=== PATIENT | male | born 1965 | race Caucasian/White ===

== ENCOUNTER 2018-05-09 01:25 | Emergency (ER) | payer OTHER ==
[2018-05-09 01:53] VITALS: TEMP 98.3; BMI 28.2
[2018-05-09] MEDS ORDERED: SODIUM CHLORIDE 1,000 ML IV ONE (02:10)
[2018-05-09] MEDS ORDERED: ACETAMINOPHEN 1000 MG/100 ML VIAL (NON FORMULARY) IVPB ONE (02:13)
--- NOTE | 2018-05-09 02:13 | PDOC ---
History of Present Illness - General Chief Complaint: Headache Stated Complaint: DIABETIC, HEADACHE Time Seen by Provider: 05/09/18 01:46 History Source: Patient - History of Present Illness Initial Comments: 05/09/18 06:25 53 year old male c/o headache to the right side for 5 hours prior to arrival. reports photophobia, denies dizziness, nausea, vomiting, chest pain, neck pain, fever/ chills. pmhx: IDDm., HTN Past History - Past Medical History Allergies/Adverse Reactions: Allergies Allergy/AdvReac Type Severity Reaction Status Date / Time No Known Allergies Allergy Verified 05/09/18 06:03 Home Medications: Ambulatory Orders Aspirin [Aspirin EC] 81 mg PO DAILY 04/20/15 Enalapril Maleate [Vasotec -] 10 mg PO DAILY 04/20/15 Gabapentin [Neurontin] 300 mg PO BID 04/20/15 Glipizide 5 mg PO DAILY 04/20/15 Insulin Glargine,Hum.rec.anlog [Lantus Solostar PEN -] 100 units SQ HS 04/20/15 Metformin HCl [Metformin HCl ER] 1,000 mg PO BID 04/20/15 Simvastatin [Zocor -] 20 mg PO HS 04/20/15 Ondansetron HCl [Zofran] 4 mg PO Q8H PRN #3 tablet 04/23/15 Oxycodone HCl 10 mg PO Q3H PRN #80 tablet 04/23/15 Unobtainable 05/09/18 Anemia: No Asthma: No Cancer: No Cardiac Disorders: No CVA: No COPD: No CHF: No Dementia: No Diabetes: Yes (DX 2007) GI Disorders: No Disorders: No HTN: Yes Hypercholesterolemia: Yes Liver Disease: No Seizures: No Thyroid Disease: No - Suicide/Smoking/Psychosocial Hx Smoking History: Never smoked Have you smoked in the past 12 months: No Information on smoking cessation initiated: No Hx Alcohol Use: No Drug/Substance Use Hx: No Substance Use Type: None Hx Substance Use Treatment: No Review of Systems - Review of Systems Able to Perform ROS?: Yes Is the patient limited French proficient: No Constitutional: No: Symptoms Reported, See HPI, Chills, Diaphoresis, Fever, Loss of Appetite, Malaise, Night Sweats, Weakness, Weight Stable, Unintentional Wgt. Loss, Unexplained wgt Loss, Other Cardiac (ROS): No: Symptoms Reported, See HPI, Chest Pain, Edema, Irregular Heart Rate, Lightheadedness, Palpitations, Syncope, Chest Tightness, Other ABD/GI: No: Symptoms Reported, See HPI, Abdominal Distended, Abd. Pain w/ defecation, Blood Streaked Bowels, Constipated, Diarrhea, Difficulty Swallowing , Nausea, Poor Appetite, Poor Fluid Intake, Rectal Bleeding, Vomiting, Indigestion, Abdominal cramping, Tarry Stools, Other Neurological: Yes: Headache. No: Symptoms reported, See HPI, Numbness, Paresthesia, Pre-Existing Deficit, Seizure, Tingling, Tremors, Weakness, Unsteady Gait, Ataxia, Dizziness, Other *Physical Exam - Vital Signs Last Vital Signs Temp Pulse Resp BP Pulse Ox 98.3 F 77 18 150/102 H 99 05/09/18 01:30 05/09/18 01:30 05/09/18 01:30 05/09/18 01:30 05/09/18 01:30 - Physical Exam General Appearance: Yes: Appropriately Dressed HEENT: positive: Normal ENT Inspection Respiratory/Chest: positive: Lungs Clear, Normal Breath Sounds Gastrointestinal/Abdominal: positive: Normal Bowel Sounds, Soft Neurologic: positive: electrical systems drafter II-XII NML intact, Fully Oriented, Alert, Normal Mood/ Affect ED Treatment Course - LABORATORY CBC & Chemistry Diagram: 05/09/18 02:30 05/09/18 02:30 Progress Note - Progress Note Progress Note: A: headache; hyperglycemia P; ct head: No acute brain parenchymal abnormality. No hemorrhage, mass or acute territorial infarct. Clear visualized paranasal sinuses. Visualized mastoid air cells clear. CBC CMP Acetone VBG *DC/Admit/Observation/Transfer Diagnosis at time of Disposition: Hyperglycemia Hypertension Qualifiers: Hypertension type: essential hypertension Qualified Code(s): I10 - Essential ( primary) hypertension Headache Qualifiers: Headache type: unspecified Headache chronicity pattern: acute headache Intractability: not intractable Qualified Code(s): R51 - Headache - Discharge Dispostion Disposition: HOME Condition at time of disposition: Fair - Referrals - Patient Instructions Printed Discharge Instructions: Tension Headache Additional Instructions: drink plenty of fluids take your blood pressure and your diabetic medications as prescribed follow up with your doctor as soon as possible. return to the ER if symptoms worsen. - Post Discharge Activity Forms/Work/School Notes: Back to Work
[2018-05-09 02:46] LABS: VENOUS PC02 41.5 mmHg (38-52); VENOUS PH 7.36 (7.32-7.42); VENOUS PO2 70.2 mmHg (28-48)
[2018-05-09 02:49] LABS: BASO % 0.9 % (0-2.0); EOS % 1.9 % (0-4.5); HEMATOCRIT 38.7 % (35.4-49); HEMOGLOBIN 13.1 GM/dL (11.7-16.9); LYMPH % 24.8 % (8-40); MCH 29.5 pg (25.7-33.7); MCHC 33.8 g/dl (32.0-35.9); MEAN CELL VOLUME 87.3 fl (80-96); MONO % 8.2 % (3.8-10.2); NEUT % 64.2 % (42.8-82.8); PLATELET COUNT 226 K/MM3 (134-434); RBC 4.43 M/mm3 (4.00-5.60); RDW 12.7 % (11.9-15.9)
[2018-05-09 02:55] LABS: INR 1.01 (0.83-1.09); PROTHROMBIN TIME (PATIENT) 11.9 SEC (9.7-13.0)
[2018-05-09 03:09] LABS: ALBUMIN 3.6 g/dl (3.4-5.0); ALK PHOS 109 U/L (45-117); ANION GAP 7 MMOL/L (8-16); BILIRUBIN,TOTAL 0.4 mg/dL (0.2-1); BLOOD UREA NITROGEN 17 mg/dL (7-18); CALCIUM 7.8 mg/dL (8.5-10.1); CHLORIDE 107 mmol/L (98-107); CO2 24 mmol/L (21-32); CREATININE 0.9 mg/dL (0.55-1.3); GLUCOSE,RANDOM 293 mg/dL (74-106); POTASSIUM 3.9 mmol/L (3.5-5.1); SGOT/AST 16 U/L (15-37); SGPT/ALT 23 U/L (13-61); SODIUM 138 mmol/L (136-145); TOT PROT 6.5 g/dl (6.4-8.2)
[2018-05-09] MEDS ORDERED: ACETAMINOPHEN INJECTION 100 ML IVPB ONE (03:17)
[2018-05-09 06:05] VITALS: BP 142/82; PULSE 80
[2018-05-09] MEDS ORDERED: INSULIN REGULAR HUMAN 100 UNITS/ML *VIAL IVPUSH ONE (06:28)
[2018-05-09] MEDS ORDERED: INSULIN REGULAR HUMAN 100 UNITS/ML *VIAL ONE (06:56)
--- NOTE | 2018-05-09 21:54 | EKG ---
Test Reason : Blood Pressure : / mmHG Vent. Rate : 074 BPM Atrial Rate : 074 BPM P-R Int : 158 ms QRS Dur : 096 ms QT Int : 420 ms P-R-T Axes : 062 -62 016 degrees QTc Int : 466 ms POOR DATA QUALITY, INTERPRETATION MAY BE ADVERSELY AFFECTED NORMAL SINUS RHYTHM LEFT AXIS DEVIATION ABNORMAL ECG NO PREVIOUS ECGS AVAILABLE Confirmed by APARNA BORGES MD ([id number]) on 05/09/2018 9:54:05 PM Referred By: Confirmed By:APARNA BORGES MD
== END 2018-05-09 07:16 | disposition home or self-care (01) ==
LOC: JER 01:25
PROC: 3E033VG Introduction of Insulin into Peripheral Vein, Percutaneous Approach (ICD-10-PCS; principal; 2018-05-09)
PROC: 3E033NZ Introduction of Analgesics, Hypnotics, Sedatives into Peripheral Vein, Percutaneous Approach (ICD-10-PCS; 2018-05-09)
DX: E11.65 Type 2 diabetes mellitus with hyperglycemia (principal); Z79.4 Long term (current) use of insulin; Z79.84 Long term (current) use of oral hypoglycemic drugs; R51 Headache; I10 Essential (primary) hypertension; E78.00 Pure hypercholesterolemia, unspecified
CPT/HCPCS: 36415; 70450-TC; 80053; 82009; 82550; 82553; 82803; 82962; 84484; 85025; 85610; 86850; 86900; 86901; 93005; 93010; 99283-25; J0131

== ENCOUNTER 2019-02-07 19:29 | Emergency (ER) | payer OTHER ==
[2019-02-07] MEDS ORDERED: SODIUM CHLORIDE 1,000 ML IV STA (19:40)
--- NOTE | 2019-02-07 19:42 | PDOC ---
Rapid Medical Evaluation Time Seen by Provider: 02/07/19 19:34 Medical Evaluation: Allergies Allergy/AdvReac Type Severity Reaction Status Date / Time No Known Allergies Allergy Verified 05/09/18 06:03 02/07/19 19:39 HPI: hyperglycemia at home 414 BS, headache PE: No distress ORDERS: labs, fluids 02/07/19 19:42 Discharge Disposition - Diagnosis Hyperglycemia - Referrals - Patient Instructions - Post Discharge Activity
[2019-02-07 20:00] VITALS: BMI 27.4
--- NOTE | 2019-02-07 20:11 | PDOC ---
History of Present Illness - General Chief Complaint: Blood Sugar Problem Stated Complaint: HIGH BLOOD SUGUR Time Seen by Provider: 02/07/19 19:34 Past History - Past Medical History Allergies/Adverse Reactions: Allergies Allergy/AdvReac Type Severity Reaction Status Date / Time No Known Allergies Allergy Verified 02/07/19 19:46 Home Medications: Ambulatory Orders Aspirin [Aspirin EC] 81 mg PO DAILY 04/20/15 Enalapril Maleate [Vasotec -] 10 mg PO DAILY 04/20/15 Gabapentin [Neurontin] 300 mg PO BID 04/20/15 Glipizide 5 mg PO DAILY 04/20/15 Insulin Glargine,Hum.rec.anlog [Lantus Solostar PEN -] 100 units SQ HS 04/20/15 Simvastatin [Zocor -] 20 mg PO HS 04/20/15 metFORMIN HCL [Metformin ER Osmotic] 1,000 mg PO BID 04/20/15 Ondansetron HCl [Zofran] 4 mg PO Q8H PRN #3 tablet 04/23/15 Oxycodone HCl 10 mg PO Q3H PRN #80 tablet 04/23/15 Unobtainable 05/09/18 Anemia: No Asthma: No Cancer: No Cardiac Disorders: No CVA: No COPD: No CHF: No Dementia: No Diabetes: Yes (DX 2007) GI Disorders: No Disorders: No HTN: Yes Hypercholesterolemia: Yes Liver Disease: No Seizures: No Thyroid Disease: No - Suicide/Smoking/Psychosocial Hx Smoking History: Never smoked Have you smoked in the past 12 months: No Information on smoking cessation initiated: No Hx Alcohol Use: No Drug/Substance Use Hx: No Substance Use Type: None Hx Substance Use Treatment: No *Physical Exam - Vital Signs Last Vital Signs Temp Pulse Resp BP Pulse Ox 98.3 F 91 H 16 143/90 97 02/07/19 19:30 02/07/19 19:30 02/07/19 19:30 02/07/19 19:30 02/07/19 19:30 ED Treatment Course - LABORATORY CBC & Chemistry Diagram: 02/07/19 21:00 02/07/19 21:00 Medical Decision Making - Medical Decision Making 02/07/19 23:50 53 y/o M with hx of diabetes who self-discontinued his insulin p/w hyperglycemia to 414 noted when he measured his blood sugar at home, consistent with non-ketotic hyperglycemia. Plan to evaluate urine for ketones, CMP for potassium level and electrolytes, and troponin with repeat in 3 hours. Plan to discharge home if second troponin negative and without ketones. *DC/Admit/Observation/Transfer Diagnosis at time of Disposition: Hyperglycemia - Discharge Dispostion Disposition: HOME Condition at time of disposition: Stable Decision to Admit order: No - Referrals Referrals: Syed Breaux MD [Primary Care Provider] - - Patient Instructions Additional Instructions: Usted fue evaluado en la mehul de urgencias por el Dr. Kruse y Dr. Cornejo. Nosotros evaluamos kerwin sintomas, tomamos mary ann historia medica, y le evaluamos con un examen fisico. Tambien hicimos examenes de paul y orine para evaluar a youngblood nivel de azucar y youngblood edna. Youngblood nivel de azucar estaba alto, por lo cual observamos a kerwin niveles de azucar y repetimos examenes de youngblood edna. Despues de seis horas youngblood nivel de troponin, que medimos para evaluar a youngblood edna, estuvo normal, y youngblood nivel de azucar estaba en un nivel seguro. Por lo cual, le descargamos del hospital. Por favor ve a youngblood doctor de cabezera la semana que viene, y tambien ve a youngblood endocrinologo (el doctor de la diabetes) lo mas pronto que puede. Por favor regrese al hospital si usted empieza a tener confusion, debilidad, dolor de pecho, dolor de estomago, o si tienes otras sintomas lo cual le preocupa. - Post Discharge Activity
[2019-02-07 21:09] LABS: BASO % 0.7 % (0-2.0); EOS % 1.2 % (0-4.5); HEMATOCRIT 43.4 % (35.4-49); HEMOGLOBIN 14.5 GM/dL (11.7-16.9); LYMPH % 37.8 % (8-40); MCHC 33.4 g/dl (32.0-35.9); MEAN CELL VOLUME 86.8 fl (80-96); MEAN PLT VOLUME 10.7 fl (7.5-11.1); MONO % 8.8 % (3.8-10.2); NEUT % 51.5 % (42.8-82.8); PLATELET COUNT 247 K/MM3 (134-434); RDW 12.7 % (11.9-15.9); WHITE BLOOD COUNT 6.5 K/mm3 (4.0-10.0)
[2019-02-07 21:14] LABS: URINE APPEARANCE CLEAR; URINE BILIRUBIN NEGATIVE (NEGATIVE); URINE COLOR YELLOW; URINE GLUCOSE (UA) 3+ (NEGATIVE); URINE KETONE NEGATIVE (NEGATIVE); URINE LEUK ESTERASE NEGATIVE (NEGATIVE); URINE NITRITE NEGATIVE (NEGATIVE); URINE PROTEIN NEGATIVE (NEGATIVE); URINE UROBILINOGEN 0.2 mg/dL (0.2-1.0)
[2019-02-07 21:39] LABS: ALBUMIN 3.8 g/dl (3.4-5.0); ANION GAP 8 MMOL/L (8-16); BILIRUBIN,TOTAL 0.3 mg/dL (0.2-1); BLOOD UREA NITROGEN 14.8 mg/dL (7-18); CALCIUM 9.2 mg/dL (8.5-10.1); CHLORIDE 107 mmol/L (98-107); CO2 23 mmol/L (21-32); CREATININE 0.9 mg/dL (0.55-1.3); POTASSIUM 4.1 mmol/L (3.5-5.1); SGOT/AST 13 U/L (15-37); SGPT/ALT 26 U/L (13-61); SODIUM 138 mmol/L (136-145); TOT PROT 7.2 g/dl (6.4-8.2)
[2019-02-07 21:40] LABS: ALK PHOS 143 U/L (45-117)
[2019-02-07 21:41] LABS: INR 0.97 (0.83-1.09); PROTHROMBIN TIME (PATIENT) 11.4 SEC (9.7-13.0)
[2019-02-07 21:42] LABS: GLUCOSE,RANDOM 311 mg/dL (74-106)
--- NOTE | 2019-02-07 21:46 | PDOC ---
Documentation entered by Ami Price SCRIBE, acting as scribe for Yovany Cornejo MD. Yovany Cornejo MD: This documentation has been prepared by the Dee ramírez Sammi, SCRIBE, under my direction and personally reviewed by me in its entirety. I confirm that the documentation accurately reflects all work, treatment, procedures, and medical decision making performed by me. Attending Attestation - Resident Resident Name: UriahMarcel - ED Attending Attestation I have performed the following: I have examined & evaluated the patient, The case was reviewed & discussed with the resident, I agree w/resident's findings & plan, Exceptions are as noted - HPI HPI: 02/07/19 21:37 The patient is a 53 year old male, with a significant PMH of IDDM, who presents to the emergency department for evaluation of general malaise, headache, chills. The patient notes he took his blood sugar at home which read 414. He reports increased thirst and urination. Daughter at bedsides states she has noticed the patient has lost weight. The patient denies chest pain, shortness of breath. Denies nausea, vomiting, diarrhea and constipation. Allergies: NKA PCP: Ailin - Physicial Exam PE: 02/07/19 21:37 GENERAL: Awake, alert, and fully oriented, in no acute distress EYES: PERRLA, EOMI, sclera anicteric, conjunctiva clear ENT: (+)Dry mucous mebranes. Auricles normal inspection, hearing grossly normal , nares patent, oropharynx clear without exudates. NECK: Normal ROM, supple, no lymphadenopathy, JVD, or masses LUNGS: Breath sounds equal, clear to auscultation bilaterally. No wheezes, and no crackles HEART: Regular rate and rhythm, normal S1 and S2, no murmurs, rubs or gallops ABDOMEN: Soft, nontender, normoactive bowel sounds. No guarding, no rebound. No masses EXTREMITIES: Normal range of motion, no edema. No clubbing or cyanosis. No cords, erythema, or tenderness NEUROLOGICAL: Cranial nerves II through XII grossly intact. Normal speech. SKIN: Warm, Dry, normal turgor, no rashes or lesions noted. - Medical Decision Making 02/07/19 21:42 A portion of this note was documented by scribe services under my direction. I have reviewed the details of the note, within reason, and agree with the documentation with the following case summary and management plan written by me. Patient treated in the ED. Nursing notes are reviewed and incorporated into the medical decision-making. Vital signs reviewed. Peripheral IV access obtained by the nurse, laboratory studies are drawn and sent, reviewed and interpreted by myself. Vital Signs Temp Pulse Resp BP Pulse Ox 98.3 F 91 H 16 143/90 97 02/07/19 19:30 02/07/19 19:30 02/07/19 19:30 02/07/19 19:30 02/07/19 19:30 53-year-old male with history of hypertension diabetes presents with hyperglycemia. Patient reports that he is typically adherent to his medications which includes metformin been 1000 mg twice a day. The patient states that his sugars are typically mid 200s. She was before on insulin reported numerous side effects so does not take it anymore. He noted that he is feeling polyuria polydipsia and checked his glucose twice including yesterday with sugars around 400s. He denies any recent illnesses, fevers, chills, cough, vomiting, diarrhea. The patient reports some bilateral shoulder discomforts which has not always came with hyperglycemia. Denies estefania chest pain or shortness of breath. Denies chest pain on exertion. Denies prior cardiac history. Because of his persistence of symptoms and is hyperglycemic, patient came to the ER for an evaluation. The patient likely has hyperglycemia secondary to his diabetes. However, we'll need to investigate and rule out other etiology such as diabetic ketoacidosis. Patient's weakness is likely secondary to dehydration secondary to polyuria and polydipsia. However, we'll need to vascular metabolic disarray such as sodium abnormalities. We'll send acetone levels. Though less likely, we'll send troponin and EKG to rule out cardiac etiology. Given that the patient is diabetic, we should check this. We'll give IV hydration and reassess. 02/08/19 00:13 CBC, BMP 02/07/19 21:00 CMP Sodium 138 mmol/L (136-145) 02/07/19 21:00 Potassium 4.1 mmol/L (3.5-5.1) 02/07/19 21:00 Chloride 107 mmol/L (98-107) 02/07/19 21:00 Carbon Dioxide 23 mmol/L (21-32) 02/07/19 21:00 Anion Gap 8 MMOL/L (8-16) 02/07/19 21:00 BUN 14.8 mg/dL (7-18) 02/07/19 21:00 Creatinine 0.9 mg/dL (0.55-1.3) 02/07/19 21:00 Est GFR (CKD-EPI)AfAm 114.21 02/07/19 21:00 Est GFR (CKD-EPI)NonAf 98.54 02/07/19 21:00 POC Glucometer 338 UNITS (80-120) 02/07/19 20:46 Random Glucose 311 mg/dL (74-106) H* 02/07/19 21:00 Calcium 9.2 mg/dL (8.5-10.1) 02/07/19 21:00 Total Bilirubin 0.3 mg/dL (0.2-1) 02/07/19 21:00 AST 13 U/L (15-37) L 02/07/19 21:00 ALT 26 U/L (13-61) 02/07/19 21:00 Alkaline Phosphatase 143 U/L (45-117) H 02/07/19 21:00 Creatine Kinase 307 U/L (26-308) 02/07/19 21:00 Creatine Kinase Index 0.8 % (0.0-5.0) 02/07/19 21:00 CK-MB (CK-2) 2.5 ng/mL (0.5-3.6) 02/07/19 21:00 Troponin I < 0.02 ng/ml (0.00-0.05) 02/07/19 21:00 Total Protein 7.2 g/dl (6.4-8.2) 02/07/19 21:00 Albumin 3.8 g/dl (3.4-5.0) 02/07/19 21:00 Urine Test Results Urine Color Yellow 02/07/19 21:05 Urine Appearance Clear 02/07/19 21:05 Urine pH 5.0 (5.0-8.0) 02/07/19 21:05 Ur Specific [place] 1.039 (1.010-1.035) H 02/07/19 21:05 Urine Protein Negative (NEGATIVE) 02/07/19 21:05 Urine Glucose (UA) 3+ (NEGATIVE) H 02/07/19 21:05 Urine Ketones Negative (NEGATIVE) 02/07/19 21:05 Urine Blood Negative (NEGATIVE) 02/07/19 21:05 Urine Nitrite Negative (NEGATIVE) 02/07/19 21:05 Urine Bilirubin Negative (NEGATIVE) 02/07/19 21:05 Ur Leukocyte Esterase Negative (NEGATIVE) 02/07/19 21:05 Blood work demonstrate no acute findings. The patient's glucose initially 311. Patient was given IV fluids and we'll repeat the blood work. We'll also repeat a second troponin. If the workup is negative, we'll encourage patient to drink plenty of fluids and to continue his metformin. We will have him follow-up with his primary care physician regards to diabetes management. His likely discharge diagnosis would be hyperglycemia secondary to diabetes. Heart Score/ECG Review #1 ECG reviewed & interpreted by me at: 05:00 02/08/19 00:13 NSR 79, left axis deviation, no std/fady, normal axis, normal intervals, QTC 458 msec
--- NOTE | 2019-02-07 23:50 | PDOC ---
*Physical Exam - Vital Signs Last Vital Signs Temp Pulse Resp BP Pulse Ox 98.3 F 91 H 16 143/90 97 02/07/19 19:30 02/07/19 19:30 02/07/19 19:30 02/07/19 19:30 02/07/19 19:30 ED Treatment Course - LABORATORY CBC & Chemistry Diagram: 02/07/19 21:00 02/07/19 23:50 - ADDITIONAL ORDERS Additional order review: Laboratory Results 02/07/19 02/07/19 02/07/19 21:05 21:00 21:00 PT with INR INR Sodium 138 Potassium 4.1 Chloride 107 Carbon Dioxide 23 Anion Gap 8 BUN 14.8 Creatinine 0.9 Est GFR (CKD-EPI)AfAm 114.21 Est GFR (CKD-EPI)NonAf 98.54 POC Glucometer Random Glucose 311 H* Calcium 9.2 Total Bilirubin 0.3 AST 13 L ALT 26 Alkaline Phosphatase 143 H Creatine Kinase Cancelled 307 Creatine Kinase Index 0.8 CK-MB (CK-2) 2.5 Troponin I Cancelled < 0.02 Total Protein 7.2 Albumin 3.8 Urine Color Yellow Urine Appearance Clear Urine pH 5.0 Ur Specific [place] 1.039 H Urine Protein Negative Urine Glucose (UA) 3+ H Urine Ketones Negative Urine Blood Negative Urine Nitrite Negative Urine Bilirubin Negative Urine Urobilinogen 0.2 Ur Leukocyte Esterase Negative 02/07/19 02/07/19 21:00 20:46 PT with INR 11.40 INR 0.97 Sodium Potassium Chloride Carbon Dioxide Anion Gap BUN Creatinine Est GFR (CKD-EPI)AfAm Est GFR (CKD-EPI)NonAf POC Glucometer 338 Random Glucose Calcium Total Bilirubin AST ALT Alkaline Phosphatase Creatine Kinase Creatine Kinase Index CK-MB (CK-2) Troponin I Total Protein Albumin Urine Color Urine Appearance Urine pH Ur Specific [place] Urine Protein Urine Glucose (UA) Urine Ketones Urine Blood Urine Nitrite Urine Bilirubin Urine Urobilinogen Ur Leukocyte Esterase 02/07/19 02/07/19 21:00 20:46 RBC 5.00 MCV 86.8 MCHC 33.4 RDW 12.7 MPV 10.7 Neutrophils % 51.5 Lymphocytes % 37.8 D Monocytes % 8.8 Eosinophils % 1.2 Basophils % 0.7 POC Glucometer 338 - Medications Given in the ED: ED Medications Discontinued Medications Generic Name Dose Route Start Last Admin Trade Name Freq PRN Reason Stop Dose Admin Sodium Chloride 1,000 mls @ 1,000 mls/hr 02/07/19 19:40 02/07/19 21:10 Normal Saline - IV 02/07/19 20:39 1,000 mls/hr .Q1H STA Administration Medical Decision Making - Medical Decision Making 02/07/19 23:[address] Kruse. Patient is a 53 yo male w/ pmh of DM who presents for evaluation of hyperglycemia and non-specific malaise. Patient evaluated with cardiac labs as well as diabetic workup w/ no concerning findings as below. Patient BGM improved w/ fluids. No concern for acute process at this time. Patient will f/u w/ printed circuit board pcb designer outpatient for further evaluation. Discharging to home. 02/08/19 00:37 Laboratory Results - last 24 hr 02/07/19 02/07/19 02/07/19 20:46 21:00 21:00 WBC 6.5 RBC 5.00 Hgb 14.5 Hct 43.4 MCV 86.8 MCH 29.0 MCHC 33.4 RDW 12.7 Plt Count 247 MPV 10.7 Absolute Neuts (auto) 3.3 Neutrophils % 51.5 Lymphocytes % 37.8 D Monocytes % 8.8 Eosinophils % 1.2 Basophils % 0.7 Nucleated RBC % 0 PT with INR 11.40 INR 0.97 Sodium Potassium Chloride Carbon Dioxide Anion Gap BUN Creatinine Est GFR (CKD-EPI)AfAm Est GFR (CKD-EPI)NonAf POC Glucometer 338 Random Glucose Calcium Total Bilirubin AST ALT Alkaline Phosphatase Creatine Kinase Creatine Kinase Index CK-MB (CK-2) Troponin I Total Protein Albumin Urine Color Urine Appearance Urine pH Ur Specific [place] Urine Protein Urine Glucose (UA) Urine Ketones Urine Blood Urine Nitrite Urine Bilirubin Urine Urobilinogen Ur Leukocyte Esterase 02/07/19 02/07/19 02/07/19 21:00 21:00 21:05 WBC RBC Hgb Hct MCV MCH MCHC RDW Plt Count MPV Absolute Neuts (auto) Neutrophils % Lymphocytes % Monocytes % Eosinophils % Basophils % Nucleated RBC % PT with INR INR Sodium 138 Potassium 4.1 Chloride 107 Carbon Dioxide 23 Anion Gap 8 BUN 14.8 Creatinine 0.9 Est GFR (CKD-EPI)AfAm 114.21 Est GFR (CKD-EPI)NonAf 98.54 POC Glucometer Random Glucose 311 H* Calcium 9.2 Total Bilirubin 0.3 AST 13 L ALT 26 Alkaline Phosphatase 143 H Creatine Kinase 307 Cancelled Creatine Kinase Index 0.8 CK-MB (CK-2) 2.5 Troponin I < 0.02 Cancelled Total Protein 7.2 Albumin 3.8 Urine Color Yellow Urine Appearance Clear Urine pH 5.0 Ur Specific [place] 1.039 H Urine Protein Negative Urine Glucose (UA) 3+ H Urine Ketones Negative Urine Blood Negative Urine Nitrite Negative Urine Bilirubin Negative Urine Urobilinogen 0.2 Ur Leukocyte Esterase Negative 02/07/19 23:50 WBC RBC Hgb Hct MCV MCH MCHC RDW Plt Count MPV Absolute Neuts (auto) Neutrophils % Lymphocytes % Monocytes % Eosinophils % Basophils % Nucleated RBC % PT with INR INR Sodium 141 Potassium 4.2 Chloride 109 H Carbon Dioxide 25 Anion Gap 6 L BUN 13.2 Creatinine 0.8 Est GFR (CKD-EPI)AfAm 119.88 Est GFR (CKD-EPI)NonAf 103.43 POC Glucometer Random Glucose 246 H Calcium 8.6 Total Bilirubin 0.4 AST 10 L ALT 24 Alkaline Phosphatase 122 H Creatine Kinase Creatine Kinase Index CK-MB (CK-2) Troponin I < 0.02 Total Protein 6.5 Albumin 3.5 Urine Color Urine Appearance Urine pH Ur Specific [place] Urine Protein Urine Glucose (UA) Urine Ketones Urine Blood Urine Nitrite Urine Bilirubin Urine Urobilinogen Ur Leukocyte Esterase *DC/Admit/Observation/Transfer Diagnosis at time of Disposition: Hyperglycemia - Discharge Dispostion Disposition: HOME Condition at time of disposition: Stable - Referrals Referrals: Syed Breaux MD [Primary Care Provider] - - Patient Instructions Printed Discharge Instructions: DI for Hyperglycemia -- Adult Additional Instructions: Usted fue evaluado en la mehul de urgencias por el Dr. Kruse y Dr. Cornejo. Nosotros evaluamos kerwin sintomas, tomamos mary ann historia medica, y le evaluamos con un examen fisico. Tambien hicimos examenes de paul y orine para evaluar a youngblood nivel de azucar y youngblood edna. Youngblood nivel de azucar estaba alto, por lo cual observamos a kerwin niveles de azucar y repetimos examenes de youngblood edna. Despues de seis horas youngblood nivel de troponin, que medimos para evaluar a youngblood edna, estuvo normal, y youngblood nivel de azucar estaba en un nivel seguro. Por lo cual, le descargamos del hospital. Por favor ve a youngblood doctor de cabezera la semana que viene, y tambien ve a youngblood endocrinologo (el doctor de la diabetes) lo mas pronto que puede. Por favor regrese al hospital si usted empieza a tener confusion, debilidad, dolor de pecho, dolor de estomago, o si tienes otras sintomas lo cual le preocupa. Print Language: UKRAINIAN - Post Discharge Activity
[2019-02-08 00:30] LABS: ALBUMIN 3.5 g/dl (3.4-5.0); ALK PHOS 122 U/L (45-117); ANION GAP 6 MMOL/L (8-16); BILIRUBIN,TOTAL 0.4 mg/dL (0.2-1); BLOOD UREA NITROGEN 13.2 mg/dL (7-18); CALCIUM 8.6 mg/dL (8.5-10.1); CHLORIDE 109 mmol/L (98-107); CO2 25 mmol/L (21-32); CREATININE 0.8 mg/dL (0.55-1.3); GLUCOSE,RANDOM 246 mg/dL (74-106); POTASSIUM 4.2 mmol/L (3.5-5.1); SGOT/AST 10 U/L (15-37); SGPT/ALT 24 U/L (13-61); SODIUM 141 mmol/L (136-145); TOT PROT 6.5 g/dl (6.4-8.2)
[2019-02-08 00:48] VITALS: BP 141/82; PULSE 72; TEMP 98.1
--- NOTE | 2019-02-09 13:30 | EKG ---
Test Reason : Blood Pressure : / mmHG Vent. Rate : 079 BPM Atrial Rate : 079 BPM P-R Int : 154 ms QRS Dur : 098 ms QT Int : 400 ms P-R-T Axes : 074 -63 019 degrees QTc Int : 458 ms NORMAL SINUS RHYTHM LEFT AXIS DEVIATION ABNORMAL ECG WHEN COMPARED WITH ECG OF 09-MAY-2018 02:41, NO SIGNIFICANT CHANGE WAS FOUND Confirmed by MD DARIUS, LIDYA ([id number]) on 02/09/2019 1:30:18 PM Referred By: Confirmed By:LIDYA MCCOY MD
== END 2019-02-08 00:48 | disposition home or self-care (01) ==
LOC: JER 19:29
PROC: 3E0337Z Introduction of Electrolytic and Water Balance Substance into Peripheral Vein, Percutaneous Approach (ICD-10-PCS; principal; 2019-02-07)
DX: E11.65 Type 2 diabetes mellitus with hyperglycemia (principal); Z79.4 Long term (current) use of insulin; I10 Essential (primary) hypertension; E78.00 Pure hypercholesterolemia, unspecified
CPT/HCPCS: 36415; 80048; 80053; 81003; 82550; 82553; 82962; 84484; 85025; 85610; 87086; 93005; 93010; 96360; 99282-25; J7030

== ENCOUNTER 2020-08-31 20:02 | Emergency (ER) | payer OTHER ==
[2020-08-31 20:07] VITALS: BP 131/80; PULSE 114; TEMP 98.4; BMI 28.0
[2020-08-31] MEDS ORDERED: METOCLOPRAMIDE HCL INJECTION 10 MG/2 ML VIAL IVPB STA (20:43)
[2020-08-31] MEDS ORDERED: SODIUM CHLORIDE 1,000 ML IV STA (20:45)
[2020-08-31 23:16] LABS: BASO % 0.7 % (0-2.0); EOS % 1.8 % (0-4.5); HEMATOCRIT 42.7 % (35.4-49); HEMOGLOBIN 14.3 GM/dL (11.7-16.9); LYMPH % 26.7 % (8-40); MCH 29.1 pg (25.7-33.7); MCHC 33.5 g/dl (32.0-35.9); MEAN CELL VOLUME 86.9 fl (80-96); MEAN PLT VOLUME 10.8 fl (7.5-11.1); MONO % 9.3 % (3.8-10.2); NEUT % 61.5 % (42.8-82.8); PLATELET COUNT 317 K/MM3 (134-434); RBC 4.91 M/mm3 (4.00-5.60); RDW 12.8 % (11.9-15.9); WHITE BLOOD COUNT 7.9 K/mm3 (4.0-10.0)
[2020-08-31 23:45] LABS: CHLORIDE 102 mmol/L (98-107); POTASSIUM 4.3 mmol/L (3.5-5.1); SODIUM 137 mmol/L (136-145)
[2020-08-31 23:47] LABS: ALBUMIN 3.9 g/dl (3.4-5.0); ANION GAP 9 MMOL/L (8-16); BLOOD UREA NITROGEN 15.9 mg/dL (7-18); CALCIUM 9.1 mg/dL (8.5-10.1); CO2 26 mmol/L (21-32)
[2020-08-31 23:50] LABS: CREATININE 1.2 mg/dL (0.55-1.3); SGOT/AST 14 U/L (15-37); SGPT/ALT 20 U/L (13-61)
[2020-08-31 23:52] LABS: BILIRUBIN,TOTAL 0.3 mg/dL (0.2-1); TOT PROT 7.4 g/dl (6.4-8.2)
[2020-08-31 23:52] LABS: URINE APPEARANCE CLEAR; URINE BILIRUBIN NEGATIVE (NEGATIVE); URINE COLOR YELLOW; URINE GLUCOSE (UA) 3+ (NEGATIVE); URINE KETONE NEGATIVE (NEGATIVE); URINE LEUK ESTERASE NEGATIVE (NEGATIVE); URINE NITRITE NEGATIVE (NEGATIVE); URINE PROTEIN NEGATIVE (NEGATIVE); URINE UROBILINOGEN 0.2 mg/dL (0.2-1.0)
[2020-08-31 23:53] LABS: ALK PHOS 139 U/L (45-117)
[2020-09-01] MEDS ORDERED: INSULIN REGULAR HUMAN 100 UNITS/ML *VIAL IVPUSH ONE
[2020-09-01 00:33] LABS: GLUCOSE,RANDOM 432 mg/dL (74-106)
== END 2020-09-01 01:55 | disposition home or self-care (01) ==
LOC: JER 20:02
PROC: 3E013VG Introduction of Insulin into Subcutaneous Tissue, Percutaneous Approach (ICD-10-PCS; principal; 2020-08-31)
PROC: 3E0337Z Introduction of Electrolytic and Water Balance Substance into Peripheral Vein, Percutaneous Approach (ICD-10-PCS; 2020-08-31)
DX: R73.9 Hyperglycemia, unspecified (principal)
CPT/HCPCS: 36415; 80053; 81003; 82010; 82550; 82962; 84484; 85025; 99284-25

== ENCOUNTER 2020-12-29 14:49 | Emergency (ER) | payer OTHER ==
[2020-12-29 15:17] VITALS: TEMP 98.3; BMI 24.2
[2020-12-29] MEDS ORDERED: LACTATED RINGERS SOLUTION 1000 ML INFUS.BAG IV ONE (16:34)
[2020-12-29 17:39] LABS: BASO % 0.9 % (0-2.0); EOS % 1.6 % (0-4.5); HEMATOCRIT 41.6 % (35.4-49); HEMOGLOBIN 13.9 GM/dL (11.7-16.9); LYMPH % 36.9 % (8-40); MCH 29.7 pg (25.7-33.7); MCHC 33.3 g/dl (32.0-35.9); MEAN PLT VOLUME 10.2 fl (7.5-11.1); MONO % 7.7 % (3.8-10.2); NEUT % 52.9 % (42.8-82.8); PLATELET COUNT 295 K/MM3 (134-434); RBC 4.67 M/mm3 (4.00-5.60); RDW 13.6 % (11.9-15.9); WHITE BLOOD COUNT 6.2 K/mm3 (4.0-10.0)
[2020-12-29 17:45] LABS: INR 0.97 (0.83-1.09); PROTHROMBIN TIME (PATIENT) 11.9 SEC (9.7-13.0)
[2020-12-29 17:48] LABS: ACTIVATED PTT 29.2 SECONDS (25.2-36.5)
[2020-12-29 18:05] LABS: CHLORIDE 104 mmol/L (98-107); SODIUM 139 mmol/L (136-145)
[2020-12-29 18:09] LABS: CALCIUM 9.3 mg/dL (8.5-10.1)
[2020-12-29 18:10] LABS: ANION GAP 7 MMOL/L (8-16); CO2 28 mmol/L (21-32); GLUCOSE,RANDOM 101 mg/dL (74-106)
[2020-12-29 18:13] LABS: CHOLESTEROL 203 mg/dL (50-200); CREATININE 0.9 mg/dL (0.55-1.3); SGOT/AST 26 U/L (15-37); SGPT/ALT 38 U/L (13-61); TRIGLYCERIDES 116 mg/dL (0-150)
[2020-12-29 18:14] LABS: BILIRUBIN,TOTAL 0.3 mg/dL (0.2-1); LDL CHOLESTEROL (ONLY SJRH) 103 mg/dL (5-100); TOT PROT 7.3 g/dl (6.4-8.2)
[2020-12-29 18:15] LABS: ALK PHOS 99 U/L (45-117)
[2020-12-29 18:16] LABS: HDL CHOLESTEROL 69 mg/dL (40-60)
[2020-12-29 19:17] LABS: PH,URINE 5.5 (5.0-8.0); URINE APPEARANCE CLEAR; URINE BILIRUBIN NEGATIVE (NEGATIVE); URINE COLOR YELLOW; URINE GLUCOSE (UA) 3+ (NEGATIVE); URINE KETONE NEGATIVE (NEGATIVE); URINE LEUK ESTERASE NEGATIVE (NEGATIVE); URINE NITRITE NEGATIVE (NEGATIVE); URINE PROTEIN NEGATIVE (NEGATIVE); URINE UROBILINOGEN 0.2 mg/dL (0.2-1.0)
[2020-12-29 19:48] VITALS: BP 112/67; PULSE 73
== END 2020-12-29 19:48 | disposition home or self-care (01) ==
LOC: JER 14:49
DX: R42 Dizziness and giddiness (principal); E86.0 Dehydration
CPT/HCPCS: 36415; 70450-TC; 80053; 80061; 81003; 82550; 82553; 83721; 84484; 85025; 85610; 85730; 93005; 93010; 99285-25

== ENCOUNTER 2022-05-16 17:59 | Emergency (ER) | payer OTHER ==
[2022-05-16 18:06] VITALS: BP 181/98; PULSE 76; RESP 20; TEMP 98.9; BMI 28.4
[2022-05-16] MEDS ORDERED: CYCLOBENZAPRINE HCL 10 MG TABLET (FP) PO ONE (19:41)
[2022-05-16] MEDS ORDERED: predniSONE 20 MG TABLET (UD) PO ONE (19:41)
[2022-05-16] MEDS ORDERED: KETOROLAC TROMETHAMINE 30 MG/1 ML VIAL IM ONE (19:41)
[2022-05-16] MEDS ORDERED: CYCLOBENZAPRINE HCL 10 MG TABLET (FP) ONE (19:52)
[2022-05-16] MEDS ORDERED: KETOROLAC TROMETHAMINE 30 MG/1 ML VIAL ONE (19:53)
[2022-05-16] MEDS ORDERED: predniSONE 20 MG TABLET (UD) ONE (19:53)
== END 2022-05-16 20:53 | disposition home or self-care (01) ==
LOC: JERFT 17:59
PROC: 3E023GC Introduction of Other Therapeutic Substance into Muscle, Percutaneous Approach (ICD-10-PCS; principal; 2022-05-16)
DX: M54.32 Sciatica, left side (principal)
CPT/HCPCS: 99284-25